=== PATIENT | female | born 1985 | race Caucasian/White ===

== ENCOUNTER 2017-10-21 12:11 | Emergency (ER) | payer MEDICAID ==
[~2017-10-21] VITALS: Ht 167.6 cm; Wt 69.9 kg
[2017-10-21 12:26] VITALS: BP 107/57
--- NOTE | 2017-10-21 12:33 | NUR ---
Patient ambulated to bed 2. RN evaluating patient at bedside.
--- NOTE | 2017-10-21 12:34 | NUR ---
PATIENT PRESENTS TO ED WITH R SHOULDER PAIN SINCE YESTERDAY MORNING FROM HER DOG PULLING HER SHOULDER AT THE VET.PT DENIES N/V/D; SKIN IS PINK/WARM/DRY; AAOX4 WITH EVEN AND STEADY GAIT; LUNGS CLEAR BL; HR EVEN AND REGULAR; PT DENIES ANY FEVER, CP, SOB, OR COUGH AT THIS TIME; PATIENT STATES PAIN OF 7/10 AT THIS TIME; VSS; PATIENT POSITIONED FOR COMFORT; HOB ELEVATED; BEDRAILS UP X2; BED DOWN. ER MD MADE AWARE OF PT STATUS.
--- NOTE | 2017-10-21 13:01 | NUR ---
Pt taken to x-ray via w/c.
--- NOTE | 2017-10-21 13:08 | NUR ---
Pt returned from x-ray.
[2017-10-21] MEDS ORDERED: KETOROLAC 30 MG/ML VIAL IM ONE (13:40)
--- NOTE | 2017-10-21 13:48 | NUR ---
KERTMINE WAS ADMINISTERED AT BED SIDE FOR PAIN MANAGEMENT WHILE DR BERGER MANIPULATED HER SHOULDER TO EXAM FOR DISLOCATED SHOULDER. V/S AT THIS TIME T 98.0 P71 R 14 B/P 108/60 02 100 ON 2 L N/C.
--- NOTE | 2017-10-21 13:48 | NUR ---
Dr. Eden re-evaluating patient at bedside.
[2017-10-21] MEDS ORDERED: KETAMINE 500 MG/5 ML VIAL IVP ONE (13:55)
[2017-10-21] MEDS ORDERED: methylPREDNISolone 4 MG TAB PO SCH (14:40)
--- NOTE | 2017-10-21 15:33 | NUR ---
Pt awake, easily arousable, expressing feeling better, VSS.
[2017-10-21] MEDS ORDERED: predniSONE 10 MG TAB PO SCH (15:57)
[2017-10-21 16:50] VITALS: BP 122/61
--- NOTE | 2017-10-21 16:50 | NUR ---
Patient discharged with v/s stable. Written and verbal after care instructions given and explained. Patient alert, oriented and verbalized understanding of instructions. Ambulatory with steady gait. All questions addressed prior to discharge. ID band removed. Patient advised to follow up with PMD. Rx of METHYLPREDNISOLONE given. Patient educated on indication of medication including possible reaction and side effects. Opportunity to ask questions provided and answered.
== END 2017-10-21 16:50 | disposition home or self-care (01) ==
LOC: MED 12:11
DX: S43.004A Unspecified dislocation of right shoulder joint, initial encounter (principal); X58.XXXA Exposure to other specified factors, initial encounter; Y93.89 Activity, other specified; Y92.89 Other specified places as the place of occurrence of the external cause; Y99.8 Other external cause status
CPT/HCPCS: 23650; 73030; 96372; 99152; 99285; J1885; J7509; J7512